=== PATIENT | male | born 1950 | race Caucasian/White ===

== ENCOUNTER → 2020-11-04 17:32 | Outpatient (CLI) | payer SELFPAY ==
[2020-11-04 18:07] LABS: Basophils % 0.1 % (0.1-2.0); Eosinophils % 1.9 % (0.1-12.0); Lymphocytes # 0.8 K/mm3 (0.7-4.5); Lymphocytes % 86.5 % (10-50); Mean Corpuscular HGB Conc 34.5 g/dL (31.8-35.4); Mean Corpuscular Hemoglobin 31.9 pg (27.0-31.2); Mean Corpuscular Volume 92.5 fl (80-94); Mean Platelet Volume 10.4 fl (7.4-10.4); Monocytes % 1.2 % (1.7-9.3); Neutrophils # 0.1 K/mm3 (1.8-7.8)
[2020-11-04 18:36] LABS: Alanine Aminotransferase 16 U/L (12-78); Albumin Level 4.1 g/dl (3.5-5.0); Albumin/Globulin Ratio 1.5 (1.1-1.8); Alkaline Phosphatase 65 U/L (38-126); Anion Gap 14.3 mEq/L (5-15); Aspartate Amino Transferase 26 U/L (17-59); Bilirubin,Total 0.4 mg/dl (0.2-1.3); Blood Urea Nitrogen 30 mg/dl (9-20); Calcium 9.1 mg/dl (8.4-10.2); Carbon Dioxide 26 mmol/L (22.0-30.0); Chloride 103 mmol/L (98-107); Estimated Glomerular Filt Rate 47 ml/min (>60); GFR (African American) 56 ML/MIN (>60); Globulin 2.8 g/dL (1.3-3.2); Glucose 96 mg/dl (74-100); Potassium 4.3 mmoL/L (3.5-5.1); Sodium 139 mmol/L (136-145); Total Protein,Serum 6.9 g/dl (6.3-8.2)
[2020-11-04 18:53] LABS: Hemoglobin 7.7 g/dL (14.1-18.0); Neutrophils % 10.2 % (37.0-80.0)
[2020-11-04 18:54] LABS: Hematocrit 22.2 % (42.0-52.0); MANUAL DIFFERENTIAL MANUAL DIFFERENTIAL (MANUAL DIFF); Platelet Count 25 K/mm3 (142-424); White Blood Count 0.9 K/mm3 (4.8-10.8)
[2020-11-04 19:55] LABS: Lymphocytes % 90 % (10-50); Monocytes % 3 % (2-9); Neutrophils % 7 % (42-76); Platelet Estimate Marked Decrease; RBC Morphology Normal; Total Cells Counted 100
== END ==
PROVIDERS: Visit Provider Internal Medicine Hematology & Oncology
DX: C92.00 Acute myeloblastic leukemia, not having achieved remission (principal)
CPT/HCPCS: 80053; 85007; 85025